=== PATIENT | male | born 1990 | race Caucasian/White ===

== ENCOUNTER 2016-03-17 20:26 | Emergency (ER) | payer OTHER ==
[~2016-03-17] VITALS: Ht 185.4 cm; Wt 102.3 kg
[2016-03-17 20:29] VITALS: BP 133/89; PULSE 95; RESP 16; O2SAT 98
[2016-03-17] MEDS ORDERED: BECL8.7A6 INHALATION (20:40)
[2016-03-17] MEDS ORDERED: MONT10TA20 PO (20:40)
[2016-03-17] MEDS ORDERED: ALBU8.5H2 INHALATION (20:40)
[2016-03-17] MEDS ORDERED: 0.9% Sodium Chloride 1,000 ML IV ONE ×2 (20:50→21:25)
[2016-03-17] MEDS ORDERED: ProchlorPERazine 5 mg/mL 2 mL Inj IVPUSH ONE (20:50)
[2016-03-17] MEDS ORDERED: Dexamethasone Inj 10 MG in 0.9% Sodium Chloride-Pha MIX 50 ML IV ONE (21:25)
--- NOTE | 2016-03-17 22:00 | ED.REPORT ---
HPI-Headache Date of Service Mar 17, 2016 ED Provider: Monica Alvarenga MD Patient is a 25-year-old male with a hx of migraines who presents to the ED due to a headache onset yesterday. He has not had a migraine in quite a while and reports this migraine is a lot worse then regular. He suspicions a bout of food poisoning may have triggered the migraine and rates the pain at 7/10. Pt describes the He c/o associated fever, chills, head and neck pain, blurry vision and photophobia. Nursing Notes Stated Complaint: HEADACHE Chief Complaint: Neuro Symptoms/ Deficits Nursing Notes Reviewed: Yes Allergies: Coded Allergies: amoxicillin (Verified Adverse Reaction, Unknown, NAUSEA, 03/17/16) MOTHER SAYS Scheduled Albuterol HFA (Proair HFA) 8.5 Gm Hfa.aer.ad 2 PUFFS INHALATION Q4H Beclomethasone Dipropionate (Qvar) 8.7 Gm Aer.w.adap 1 PUFF INHALATION BID Montelukast (Singulair) 10 Mg Tablet 10 MG PO HS General Time Seen by MD: 20:46 Chief Complaint Migraine headache Hx Obtained From: Patient Arrived By: Walk-in Sudden in Onset?: No Onset Occurred: 1 day ago Symptom Duration: Since onset Location: : Frontal bilateral Radiation: : Does not radiate Severity: Current: Pain level 7 out of 10 Recent Healthcare: No recent doctor visit, No recent hospitalization Similar Sx Previous: No Past Medical History Past Medical History Reports: Asthma Past Surgical History None Smoking History Never Smoker Social History Alcohol Use: "Social" Drug Use: Denies drug use Other Social History: Good social support Ambulatory Status Independent Review of Systems Constitutional: Reports: Chills, Fever Eyes: Reports: Blurred bilateral, Photophobia Musculoskeletal: Reports: Neck pain Neurologic: Reports: Headache Complete sys rev & neg: except as marked. Physical Exam Initial Vital Signs Vital Signs (First) Date Time Temp Pulse Resp B/P Pulse Ox O2 Delivery O2 Flow Rate FiO2 03/17/16 20:29 36.2 95 16 133/89 98 Room Air Initial VS: Reviewed, Vital signs normal ENT: Mucous membranes moist, Conjunctiva normal, No scleral icterus Respiratory: Breath sounds normal, Clear to auscultation, No respiratory distress Cardiovascular: Regular rate & rhythm, Heart sounds normal, Intact distal pulses Abdomen / GI: Soft, Non-tender, No guarding, No rebound, No distention Back: No CVA tenderness Extremities: Vascular intact, Neuro intact, No swelling, No tenderness Skin: Warm, Dry, No cyanosis Psychiatric: Mood/affect normal, Behavior normal, Normal thought content General/Constitutional: Awake, Alert, Well appearing, Cooperative, Not toxic appearing Head / Eyes: Atraumatic, Normocephalic light sensitivity Neck: Atraumatic, Supple, No meningismus, Full range of motion, No swelling, Non-tender, No midline vertebral tend Neurologic: Oriented X3, Speech NL, No motor deficits, No sensory deficits cranial nerves intact Interpretation & Diagnostics Lab Results Interpretation Test 03/17/16 21:05 Hold Purple Top Tube Received (Received) Hold Blue Top Tube Received (Received) Hold [place] Top Tube Received (Received) Hold [place] Top Tube Received (Received) Re-Eval/Medical Decision Med Decision/Clinical Course The patient presented with a migraine headache which is like his usual ones although more intense and he has not had one for quite a while. Is neurologically intact. Differential diagnoses considered were migraine, meningitis, viral syndrome, intracranial hemorrhage, and dehydration. Patient was treated with usual medications and was feeling significantly improved upon discharge. He did have some side effects from the Compazine and required a dose of Ativan, he been given Benadryl initially. Re-Evaluation/Progress : Time of Eval: 22:14 Re-Evaluation/Progress Note: Pt rechecked. Informed pt of diagnosis of migraine and plan for treatment. Pt understands and agrees with plan. F/U and RTER warnings given. All questions addressed. Counseled Regarding: Diagnosis, Lab results, Need for follow-up, When/why to return to ED Discharge & Departure Impression: Primary Impression: Migraine Migraine type: unspecified Status migrainosus presence: without status migrainosus Intractability: not intractable Qualified Code: G43.909 - Migraine, unspecified, not intractable, without status migrainosus Disposition: Home Discharge Condition All VS Reviewed: Yes Condition: Stable Patient Instructions: Migraine Headache (GEN) Additional Instructions: Thank you for coming to the Emergency Department today. Your diagnosis is migraine. Go home and get plenty of sleep and fluids. Take Tylenol and Motrin as directed for pain. Return to the Emergency Department for any new or worsening symptoms. We hope you feel better soon! Referrals: Guille Martin MD (PCP) Nai Attestation Portion of this note were transcribed by Kurtis Rodriguez. I, Dr. Alvarenga, personally performed the history, physical exam, and medical decision-making: I reviewed and confirmed the accuracy for the information in the transcribed note. Signed by: nai [place], 03/17/16 [id number] copies to: Guille Martin MD, Jena M MD Mar 17, 2016 22:00 KURTIS RODRIGUEZ Mar 17, 2016 22:04
[2016-03-17 22:31] VITALS: BP 130/88; PULSE 92; RESP 14; O2SAT 99
== END 2016-03-17 22:32 | disposition home or self-care (01) ==
LOC: SED 20:26
DX: G43.909 Migraine, unspecified, not intractable, without status migrainosus (principal); R50.9 Fever, unspecified; J45.909 Unspecified asthma, uncomplicated; Z88.1 Allergy status to other antibiotic agents
CPT/HCPCS: 96361; 96374; 96375; 99284; J0780; J1100; J1200; J2060; J7030